=== PATIENT | male | born 1970 | race Hispanic/Latino ===

== ENCOUNTER 2025-06-21 22:42 | Inpatient (IN) | payer SELFPAY ==
[2025-06-21 22:36] VITALS: BMI 27.4
[2025-06-21 22:45] VITALS: BP 97/62; PULSE 71; RESP 17; TEMP 37.3; O2SAT 100
--- NOTE | 2025-06-21 22:49 | PCM.HP.STD ---
HPI - General General Date of Admission: 06/21/25 Date of Service: 06/21/25 Chief Complaint: Hyperglycemia HPI Narrative JOSE ADDISON, is a 55 M who presented to outside hospital at [facility] due to hyperglycemia that was found at an appointment newly established appointment with primary care physician on the day of presentation. He was subsequently transferred to [facility] and admitted to the intensive care unit as [facility] is not able to run insulin drips. Unfortunately the patient was sent here without labs or report from the ED physician. Per conversation with the ED physician at [facility] will his blood pressure was 130/75, heart rate was 70, respiratory was 19 and oxygen saturation was 100% on room air. His hemoglobin there was 12.8. The chemistry panel showed a sodium of 133, potassium of 3.8, bicarb of 10, serum creatinine 0.6 and his blood sugar initially was greater than 450 with a repeat of 444 after fluids and insulin drip were initiated. His anion gap was 31. pH was 7.23. Patient was newly diagnosed on the day of admission. [facility] Medical History (Updated 06/22/25 @ 00:[address] Fátima Lucio DO) History of alcohol abuse Medical History no medical history no medical history Allergy/AdvReac Type Severity Reaction Status Date / Time No Known Allergies Allergy Verified 06/21/25 23:24 Family History no significant family his no significant family history Surgical History no surgical history no surgical history Social History (Updated 06/22/25 @ 00:[address] Fátima Lucio DO) household members: spouse housing: house current occupational status: employed current occupation: Mechanical repair/metal works Smoking Status: Never smoker alcohol intake: former substance use type: does not use ROS Constitutional Constitutional: Reports change in weight, fatigue, malaise and weakness; Denies anorexia, chills, fever(s), night sweats or other Eyes Eyes: Denies blurry vision, change in eye color, change in vision, discharge from eye(s), double vision, erythema, eye pain, loss of vision or other ENT HEENT: Denies abnormal hearing, dysphagia, ear pain, epistaxis, headache(s), hearing loss, nasal congestion, nasal discharge, post nasal drip, sinus pressure, sore throat or other Cardiovascular Cardiovascular: Denies chest pain, claudication, dyspnea on exertion, edema, lightheadedness, orthopnea, palpitations, paroxysmal nocturnal dyspnea, rapid heart rate, syncope or other Respiratory/Chest Respiratory/Chest: Denies cough, dyspnea, excessive phlegm production, hemoptysis, productive cough, shortness of breath at rest, shortness of breath with exertion, wheezing or other Gastrointestinal Gastrointestinal: Reports abdominal pain and nausea; Denies coffee ground emesis, constipation, diarrhea, dyspepsia, hematemesis, hematochezia, loose stools, melena, vomiting or other Genitourinary Genitourinary: Denies burning urination, difficulty urinating, dysuria, hematuria, nocturia, urinary frequency, urinary hesitancy, urinary incontinence, urinary urgency or other Musculoskeletal Musculoskeletal: Denies arthralgias, back pain, joint pain, joint stiffness, joint swelling, myalgias, neck pain or other Neurologic Neurologic: Denies abnormal gait, abnormal speech, confusion, disequilibrium, dizziness, focal weakness, headache(s), numbness, paresthesias, seizure-like activity, seizures, syncope, tingling, tremor(s) or other Psychiatric Psychiatric: Denies anxiety, depression, homicidal ideation, suicidal ideation or other Endocrine Endocrinology: Reports polydipsia and polyuria; Denies change in body appearance, cold intolerance, excessive sweating, heat intolerance or other Hematologic/Lymphatic Hematologic/Lymphatic: Denies anemia, easy bleeding, easy bruising, lymphadenopathy or other Allergic/Immunologic Allergic/Immunologic: Denies rhinitis, hives, eczemia, asthma or other Physical Exam Const alert, oriented x3, no apparent distress and average body habitus Constitutional Narrative: Middle-aged, , male, sitting up in bed, no signs of distress, family at bedside, nursing at bedside, does not appear toxic, thin General Appearance: cooperative HEENT normocephalic, head/scalp atraumatic and hearing grossly normal bilaterally; Negative for dentition normal HEENT Narrative: Dentition is poor, Mallampati is 1, no thrush, mucous membranes are dry Eyes conjunctivae normal Eyes Narrative: No scleral icterus Neck supple Neck Narrative: Neck veins are flat, trachea is midline Resp normal respiratory effort, no retractions, no use of accessory muscles and clear to auscultation bilaterally Auscultation: Negative for crackles, rhonchi or wheezes Cardio regular rate, regular rhythm, S1 normal heart sound, S2 normal heart sound, no murmurs, no rub, no gallops and no clicks GI normal to inspection, nondistended, normoactive bowel sounds, soft to palpation and non-tender Extremity no clubbing, cyanosis or edema Extremity Narrative: 2+ pedal pulses, 2+ radial pulses Skin Skin Narrative: No significant lesions, mild skin tenting, multiple tattoos Neuro moves all extremities and no focal motor deficits Speech: speech normal Psych affect normal Psych Narrative: Pleasant, interacts appropriately Results Lab / Micro Data 06/21/25 22:47 06/21/25 22:47 Assessment & Plan Assessment/Plan (1) DKA (diabetic ketoacidoses): (2) High anion gap metabolic acidosis: (3) Newly diagnosed diabetes: (4) Hypokalemia: (5) Hypophosphatemia: (6) Anemia: PLAN: Plan DKA secondary to newly diagnosed DM - Diabetes type unknown - Check C-peptide, anti-EFRAÍN antibodies, antiparietal cell antibodies - Recommend outpatient follow-up with endocrinology after discharge - Insulin drip per DKA protocol - IV fluids per DKA protocol - N.p.o. okay for sips and chips - Once gap is closed x 2 should be able to transition off drip to subcu insulin - Check lipid panel -If LDL is elevated may need to add atorvastatin - Add low-dose lisinopril at 5 mg for renal protection Anion gap metabolic acidosis secondary to the above - Monitor with frequent lab for resolution then transition off drip Hypokalemia/hypophosphatemia - K-Phos bolus given with 45 mmol - Continue to monitor labs closely as patient expected to have intra and extracellular shifts Anemia - Mild - Etiology is unclear - Recommend outpatient workup after discharge - If patient has not had colonoscopy he should do so Social barriers - Patient does not speak fluent Vincentian and is speaking - [facility] approved, utilized for communication - Consult social work/case management - Patient does not appear to be insured DVT prophylaxis - Enoxaparin 40 daily CODE STATUS - Full code as verified on admission Charges/Coding Visit Charges Inpatient E&M: 07702 Init Hosp L3
[2025-06-21 23:06] VITALS: BP 116/66; PULSE 73; RESP 14; O2SAT 14
[2025-06-21 23:07] LABS: Hematocrit 32.8 % (40-54); Hemoglobin 11.2 g/dL (13.0-16.5); Immature Granulocytes Count 0.020 X10^3/uL (0.0-0.0); Mean Corp Hgb Conc 34.1 g/dL (32-36); Mean Corpuscular Volume 89.6 fL (80-94); Mean Platelet Vol. 13.0 fl (6.2-12.0); NRBC Flagged by Analyzer 0 % (0-5); Platelet Count 208 K/mm3 (150-450); RBC Distribution Width CV 14.2 % (11.6-14.6); RBC Distribution Width SD 45.8 fl (35.1-43.9); Red Blood Count 3.66 M/mm3 (4.6-6.2); White Blood Count 6.4 K/mm3 (4.4-11.0)
[2025-06-21 23:21] VITALS: BP 110/71; PULSE 72; RESP 14; O2SAT 100
[2025-06-21 23:29] LABS: BETA-HYDROXYBUTYRATE 4.8 mmol/L (0.0-0.3); Cholesterol 206 mg/dL (<=200); Low Density Lipoprotein Calc. 126 mg/dL; Magnesium 2.0 mg/dL (1.5-2.2); Triglycerides 177 mg/dL; Very Low Density Lipoprotein 35 mg/dL (5-40); cholesterol:hdl ratio screen 4.24
[2025-06-21 23:40] LABS: AST(SGOT) 21 U/L (<=37); Alanine Aminotransfer ALT/SGPT 25 U/L (<=46); Albumin, Serum 3.4 g/dL (3.5-5.0); Alkaline Phosphatase 116 U/L (40-129); Anion Gap 21 (5-15); BUN 12 mg/dL (4-19); BUN/Creat Ratio 14.1 RATIO (10-20); Calcium,Total 8.6 mg/dL (7.6-11.0); Carbon Dioxide 12.4 mmol/L (21.0-32.0); Chloride 108 mmol/L (98-108); Estimated Creatinine Clearance 66.29 ml/min (50-250); Globulin 2.8 g/dL (2.2-4.2); Glucose 226 mg/dL (70-99); Potassium 3.1 mmol/L (3.3-5.1)
[2025-06-22] VITALS (18 sets, daily range): BP systolic 86–104; BP diastolic 56–66; PULSE 54–70; RESP 11–20; TEMP 36.4–36.8; O2SAT 96–100; BMI 27.4
[2025-06-22] MEDS: Insulin Lispro 100 UNIT in 0.9% Normal Saline (100mL Bag) 99 ML CONT INF (00:03)
[2025-06-22] MEDS: Dext 5%-0.45% NS 1,000 ML 150 ML IV ×2 (00:07→06:21)
[2025-06-22 00:32] LABS: Alcohol, Blood (Medical)-Serum < 10.1 mg/dL (<=10.0)
[2025-06-22 00:35] LABS: Barbiturate Urine NEGATIVE (< 200 ng/mL); Benzodiazepine Urine NEGATIVE (< 200 ng/mL); PCP Urine NEGATIVE (< 25 ng/mL); THC Urine NEGATIVE (< 50 ng/mL)
[2025-06-22] MEDS: Potassium Phosphate 45 MM in 0.9% Normal Saline (500mL Bag) 500 ML 85 MM IV (00:48)
[2025-06-22 02:48] LABS: Anion Gap 19 (5-15); Carbon Dioxide 12.5 mmol/L (21.0-32.0); Chloride 109 mmol/L (98-108); Magnesium 2.1 mg/dL (1.5-2.2); Potassium 3.1 mmol/L (3.3-5.1)
[2025-06-22 06:57] LABS: Anion Gap 13 (5-15); Carbon Dioxide 17.5 mmol/L (21.0-32.0); Chloride 113 mmol/L (98-108); Magnesium 2.1 mg/dL (1.5-2.2); Potassium 3.2 mmol/L (3.3-5.1)
--- NOTE | 2025-06-22 07:39 | NURSING ---
at 0600 the pt was decreasing in BG faster than the insulin drip was adjusting for. Per Ted from pharmacy pause the insulin drip for an hour and resume per the DKA nomogram for the BG and retrack the nomogram and resume. The drip was paused at 630 and resumed at 730 with half-hour bg checks until it was resumed.
--- NOTE | 2025-06-22 07:43 | PN.HOSP_ITS ---
Reason for Visit Chief Complaint: Hyperglycemia Subjective Subjective As the patient in Tajik if is okay to use Google translate to which he replied in Tajik yes. He denies ever having had diabetes. Feels fine currently (still on insulin drip). Denies further complaints. Objective Data Objective Data Vital Signs: Vital Signs Temp Pulse Resp BP Pulse Ox O2 Del Method 37.3 C 61 12 86/60 L 98 Room Air 06/21/25 22:45 06/22/25 07:00 06/22/25 07:00 06/22/25 07:00 06/22/25 07:00 06/22/25 07:00 Oxygen Delivery Method Room Air Weight: 57.6 kg Body Mass Index (BMI) 27.4 Intake & Output: Intake and Output for Last 24 Hours 06/20/25 06/21/25 06/22/25 23:59 23:59 23:59 Intake Total 1470.84 / 1470.84 Balance 1470.84 / 1470.84 Lab / Micro Data 06/21/25 22:47 06/22/25 09:50 Labs: Laboratory Results - last 24 hr 06/21/25 22:39: POC Glucose 210 H 06/21/25 22:47: WBC 6.4, RBC 3.66 L, Hgb 11.2 L, Hct 32.8 L, MCV 89.6, MCH 30.6, MCHC 34.1, RDW Std Deviation 45.8 H, RDW Coeff of José 14.2, Plt Count 208, MPV 13.0 H, Immature Gran % (Auto) 0.300, Neut % (Auto) 44.9 L, Lymph % (Auto) 40.6, [place] % (Auto) 13.2 H, Eos % (Auto) 0.5, Baso % (Auto) 0.5, Absolute Neuts (auto) 2.9, Absolute Lymphs (auto) 2.58, Nucleated RBC % 0, Sodium 142, Potassium 3.1 L , Chloride 108, Carbon Dioxide 12.4 L, Anion Gap 21 H, BUN 12, Creatinine 0.88, Estim Creat Clear Calc 66.29, Est GFR (MDRD) Non-Af 101, BUN/Creatinine Ratio 14.1, Glucose 226 H, Hemoglobin A1c 16.6 H, Calcium 8.6, Phosphorus 1.4 L*, Magnesium 2.0, Total Bilirubin 0.44, AST 21, ALT 25, Alkaline Phosphatase 116, Total Protein 6.2, Albumin 3.4 L, Globulin 2.8, Albumin/Globulin Ratio 1.2, Triglycerides 177, Cholesterol 206 H, LDL Cholesterol, Calc 126, VLDL Cholesterol 35, HDL Cholesterol 49, Cholesterol/HDL Ratio 4.24, b-Hydroxybutyric mmol/L 4.8 H 06/21/25 23:50: Urine Opiates Screen NEGATIVE, U Buprenorphine Qual NEGATIVE, Ur Oxycodone Screen NEGATIVE, Urine Methadone Screen NEGATIVE, Urine Fentanyl Screen NEGATIVE, Ur Barbiturates Screen NEGATIVE, Ur Phencyclidine Scrn NEGATIVE, Ur Amphetamines Screen NEGATIVE, U Benzodiazepines Scrn NEGATIVE, Urine Cocaine Screen NEGATIVE, U Cannabinoids Screen NEGATIVE, Ethyl Alcohol < 10.1 06/22/25 00:58: POC Glucose 236 H 06/22/25 02:03: POC Glucose 245 H 06/22/25 02:10: Sodium 141, Potassium 3.1 L, Chloride 109 H, Carbon Dioxide 12.5 L, Anion Gap 19 H, Phosphorus 2.8, Magnesium 2.1 06/22/25 02:55: POC Glucose 221 H 06/22/25 04:04: POC Glucose 173 H 06/22/25 05:09: POC Glucose 149 H 06/22/25 06:03: POC Glucose 107 H 06/22/25 06:10: Sodium 143, Potassium 3.2 L, Chloride 113 H, Carbon Dioxide 17.5 L, Anion Gap 13, Phosphorus 4.4, Magnesium 2.1, TSH 2.730 06/22/25 06:30: POC Glucose 96 06/22/25 06:56: POC Glucose 122 H Physical Exam Const alert and no apparent distress Constitutional Narrative: afebrile. Resp normal respiratory effort and no retractions Assessment & Plan Assessment/Plan (1) DKA (diabetic ketoacidoses): (2) High anion gap metabolic acidosis: (3) Hypokalemia: PLAN: Plan DKA * unknown type, but I suspect type I given his moderately elevated glucose. * C-peptide, anti-EFRAÍN antibodies, antiparietal cell antibodies ordered and will need to be followed up as outpt. * Recommend outpatient follow-up with endocrinology after discharge * Insulin drip per DKA protocol * IV fluids per DKA protocol * Resolved. Start glargine 10 units daily as well as sliding scale insulin. Advance diet. DVT prophylaxis - Enoxaparin 40 daily CODE STATUS - Full code as verified on admission Charges/Coding Visit Charges Inpatient E&M: 24562 Subs Hosp L2
[2025-06-22] MEDS: Potassium Chloride Oral Tablet 20 MEQ 60 MEQ PO (08:45)
[2025-06-22 10:25] LABS: Anion Gap 15 (5-15); BUN 9 mg/dL (4-19); BUN/Creat Ratio 13.0 RATIO (10-20); Calcium,Total 8.2 mg/dL (7.6-11.0); Carbon Dioxide 15.9 mmol/L (21.0-32.0); Chloride 110 mmol/L (98-108); Estimated Creatinine Clearance 82.16 ml/min (50-250); Glucose 210 mg/dL (70-99); Magnesium 2.0 mg/dL (1.5-2.2); Potassium 3.2 mmol/L (3.3-5.1)
--- NOTE | 2025-06-22 12:01 | CASEMGMT ---
Social Work- SW met with pt to discuss self-pay status. SW use french translator service to communicate with pt. Pt agreeable to referral to [facility]; reports that he has always paid the agreed upon munoz. SW completed referral to [facility]. SW provided education on importance of prescription coverage with new diagnosis. SW provided printables for [employer], [place], [address], and prescription assistance programs all in Guinean. Pt reports no other needs at this time. NAKUL Amaya
[2025-06-22] MEDS: Insulin Glargine-YFGN 100 UNIT/ML Pen 10 UNIT SC (12:37)
--- NOTE | 2025-06-22 14:29 | DS.PCM_ITS ---
Providers Date of Admission: 06/21/25 Primary Care Physician: No Primary Care Phys Reason For Visit: DKA/NEW DM Diagnosis Discharge Diagnosis (1) DKA (diabetic ketoacidoses): Status: Acute Code(s): E11.10 - Type 2 diabetes mellitus with ketoacidosis without coma (2) High anion gap metabolic acidosis: Status: Acute Code(s): E87.29 - Other acidosis (3) Hypokalemia: Status: Acute Code(s): E87.6 - Hypokalemia Plan DKA * unknown type, but I suspect type I given his moderately elevated glucose. * C-peptide, anti-EFRAÍN antibodies, antiparietal cell antibodies ordered and will need to be followed up as outpt. * Recommend outpatient follow-up with endocrinology after discharge * Insulin drip per DKA protocol * IV fluids per DKA protocol * Resolved. Start glargine 10 units daily as well as sliding scale insulin. Advance diet. DVT prophylaxis - Enoxaparin 40 daily CODE STATUS - Full code as verified on admission Medications at Discharge Home Medications insulin glargine-yfgn 100 unit/mL (3 mL) subcutaneous pen 10 unit (0.1 mL) subcut DAILY #15 mL 06/22/25 Hospital Course Operations None Procedures None Summary of Care Provided Hospital Course: greater than 35 minutes spent on discharge This is a 55-year-old male presented to primary care office noted to have hyperglycemia.Patient was found to be in DKA and was started on insulin drip. Patient improved. His A1c was 16.6. Patient has never been diagnosed with diabetes before but likely has had this for some time. It is unclear if he is type I or type II but I favor that he is likely a type II given his lack of symptoms. Patient will be discharged with insulin glargine 10 units daily and a glucometer with testing strips and needles. Patient does not speak any German so communication has been through an translator and interpreter and with his permission using mojio. Weight / BMI Weight Weight: 57.6 kg Body Mass Index (BMI) 27.4 ABG / Lab / Microbiology Data 06/21/25 22:47 06/22/25 09:50 Laboratory: Laboratory Results - last 24 hr 06/21/25 22:39: POC Glucose 210 H 06/21/25 22:47: WBC 6.4, RBC 3.66 L, Hgb 11.2 L, Hct 32.8 L, MCV 89.6, MCH 30.6, MCHC 34.1, RDW Std Deviation 45.8 H, RDW Coeff of José 14.2, Plt Count 208, MPV 13.0 H, Immature Gran % (Auto) 0.300, Neut % (Auto) 44.9 L, Lymph % (Auto) 40.6, [place] % (Auto) 13.2 H, Eos % (Auto) 0.5, Baso % (Auto) 0.5, Absolute Neuts (auto) 2.9, Absolute Lymphs (auto) 2.58, Nucleated RBC % 0, Sodium 142, Potassium 3.1 L , Chloride 108, Carbon Dioxide 12.4 L, Anion Gap 21 H, BUN 12, Creatinine 0.88, Estim Creat Clear Calc 66.29, Est GFR (MDRD) Non-Af 101, BUN/Creatinine Ratio 14.1, Glucose 226 H, Hemoglobin A1c 16.6 H, Calcium 8.6, Phosphorus 1.4 L*, Magnesium 2.0, Total Bilirubin 0.44, AST 21, ALT 25, Alkaline Phosphatase 116, Total Protein 6.2, Albumin 3.4 L, Globulin 2.8, Albumin/Globulin Ratio 1.2, Triglycerides 177, Cholesterol 206 H, LDL Cholesterol, Calc 126, VLDL Cholesterol 35, HDL Cholesterol 49, Cholesterol/HDL Ratio 4.24, b-Hydroxybutyric mmol/L 4.8 H 06/21/25 23:50: Urine Opiates Screen NEGATIVE, U Buprenorphine Qual NEGATIVE, Ur Oxycodone Screen NEGATIVE, Urine Methadone Screen NEGATIVE, Urine Fentanyl Screen NEGATIVE, Ur Barbiturates Screen NEGATIVE, Ur Phencyclidine Scrn NEGATIVE, Ur Amphetamines Screen NEGATIVE, U Benzodiazepines Scrn NEGATIVE, Urine Cocaine Screen NEGATIVE, U Cannabinoids Screen NEGATIVE, Ethyl Alcohol < 10.1 06/22/25 00:58: POC Glucose 236 H 06/22/25 02:03: POC Glucose 245 H 06/22/25 02:10: Sodium 141, Potassium 3.1 L, Chloride 109 H, Carbon Dioxide 12.5 L, Anion Gap 19 H, Phosphorus 2.8, Magnesium 2.1 06/22/25 02:55: POC Glucose 221 H 06/22/25 04:04: POC Glucose 173 H 06/22/25 05:09: POC Glucose 149 H 06/22/25 06:03: POC Glucose 107 H 06/22/25 06:10: Sodium 143, Potassium 3.2 L, Chloride 113 H, Carbon Dioxide 17.5 L, Anion Gap 13, Phosphorus 4.4, Magnesium 2.1, TSH 2.730 06/22/25 06:30: POC Glucose 96 06/22/25 06:56: POC Glucose 122 H 06/22/25 07:33: POC Glucose 145 H 06/22/25 08:30: POC Glucose 213 H 06/22/25 09:43: POC Glucose 191 H 06/22/25 09:50: Sodium 141, Potassium 3.2 L, Chloride 110 H, Carbon Dioxide 15.9 L, Anion Gap 15, BUN 9, Creatinine 0.71, Estim Creat Clear Calc 82.16, Est GFR (MDRD) Non-Af 108, BUN/Creatinine Ratio 13.0, Glucose 210 H, Calcium 8.2, Phosphorus 3.5, Magnesium 2.0 06/22/25 10:47: POC Glucose 167 H 06/22/25 11:53: POC Glucose 163 H D/C Instructions DC O2, CPAP, BIPAP Needs Home O2 Discharge instructions: No Meaningful Use Info Meaningful Use Meaningful Use Diagnoses (Choose all that apply): None applicable Discharge Plan Admission Admit Date/Time: 06/21/25 22:42 Primary Reason for Your Visit: DKA Attending Provider: Ted Graham Primary Care Provider: Care Physician,No Primary Consulting Providers: Fátima Lucio Instructions Additional Instructions / Restrictions: Tiene diabetes. Saleh nivel de az?car en mandeep est? muy alto y necesitar? medicaci?n. El medicamento es nori insulina llamada Lantus. Le indicar? c?mo usarla. Deber? inyect?rsela debajo de la piel todos los d?as. Apl?quesela aproximadamente a la misma hora cada ma?vasile. Tambi?n necesita controlar saleh nivel de az?car en mandeep. Use el gluc?metro, las lancetas y las tiras reactivas para medir saleh az?car. Lleve un registro de ramy niveles de az?car para que saleh m?dico de cabecera pueda revisarlos y ajustar la dosis de insulina si es necesario. Si saleh nivel de az?car en mandeep se mantiene elevado entre 300 y 400, avise a saleh m?dico o acuda a la ceci de emergencias. Para tu dieta: debes evitar las bebidas azucaradas. Por ejemplo: zumos, Coca- Cola, Sprite. Las bebidas light (Coca-Cola Light, etc.), el agua, el caf? y el t? est?n permitidos. Claudette los dulces. Concierte nori minh de seguimiento con saleh m?dico en [facility] en las pr?ximas 1-2 semanas. Por favor, lleve un registro de ramy niveles de az?car en mandeep para mostr?rselo a saleh m?dico. Discharge Orders/Prescriptions Prescriptions: New insulin glargine-yfgn 100 unit/mL (3 mL) Insulin Pen 10 unit subcut DAILY Qty: 15 0RF Other Ambulatory Orders: Glucometer (Routine) Timeframe: 1 Day Location: Determined by Patient Ordered By: Dr. Ted Graham Referrals / Follow Up: Care Physician,No Primary [Primary Care Provider, Medical] Disposition Disposition (needs filled in before D/C Order can be placed): Home, Self Care Charges/Coding Visit Charges Inpatient E&M: 67933 Disch Hosp >30min
--- NOTE | 2025-06-22 16:01 | CASEMGMT ---
Pt has DC order in. Pt does not have PCP or insurance. Pt is Jamaican speaking and does not speak Greenlandic. Hospitalist [facility] order to [facility], which is closed. ALVARO WINTER called in patient pharmacy. They were agreeable to getting Pt medicaiton and stated they will process Rx assist if ALVARO WINTER tubes the Rx assist order to them. ALVARO WINTER sent Rx asist form. Pharmacist brought medication to pt room. ALVARO WINTER and RN went into Pt room, utilized craft center director via hospital tablet. ALVARO WINTER verified Pt information. Pt states he has transportation home, his brother will pick him up. ALVARO WINTER informed Pt utilized the [employer] one time only Rx assist to cover insulin. Provided Pt with script to cigar packer and picker glucometer and supplies. Instructed pt to put insulin in the fridge to store. Pt verbalized understanding and denied needs. RN reviewed proper use of BGM and went over DC instructions.
--- NOTE | 2025-06-22 18:14 | NURSING ---
MULTIPLE KRAMES PRINTOUTS PROVIDED ABOUT DIABETES. REVIEWED CHECKING BLOOD SUGAR AND ADMINISTERING INSULIN W/PT DEMONSTRATING BACK MULTIPLE TIMES. ON PHONE W/INTERPRETOR FOR 48MINS. ALSO ABOVE REVIEWED W/UKRAINIAN SPEAKING FAMILY MEMBER WHO CAME TO PICK PT UP. INSTRUCTED TO MONITOR BLOOD SUGAR MINIMUM OF BID AND KEEP TRACK TO TAKE TO F/U W/PCP.
[2025-06-24 12:08] LABS: Anti-Parietal Cell AB, QN 2.7 Units (0.0-20.0)
== END 2025-06-22 18:07 | disposition home or self-care (01) | DRG 639 ==
LOC: ICU 06-22 13:03 → MS3 06-22 13:38
PROVIDERS: Admitting Provider Internal Medicine; Referring Provider Internal Medicine
DX: E11.10 Type 2 diabetes mellitus with ketoacidosis without coma (principal); E83.39 Other disorders of phosphorus metabolism; D64.9 Anemia, unspecified; E11.65 Type 2 diabetes mellitus with hyperglycemia; E87.6 Hypokalemia
CPT/HCPCS: 80048; 80051; 80053; 80061; 80307; 82010; 82077; 82962; 83036; 83516; 83735; 84100; 84443; 84681; 85025; 94762; 97802